=== PATIENT | male | born 1965 | race Caucasian/White ===

== ENCOUNTER 2016-12-29 13:38 | Emergency (ER) | payer OTHER ==
[~2016-12-29 13:38] MED LIST: AMOXICILLIN875 MG PO; AUG500 PO; BACTROBAN2% TP; CLEOCIN HCL300 MG PO; COLACE100 MG PO; HIB480 TP; IBUPROFEN600 MG PO; LAC PO; NOR10T PO
[2016-12-29 15:52] VITALS: BP 128/67
== END 2016-12-29 15:52 | disposition home or self-care (01) ==
LOC: ED 13:38
DX: S01.01XA Laceration without foreign body of scalp, initial encounter (principal); L08.9 Local infection of the skin and subcutaneous tissue, unspecified; X58.XXXA Exposure to other specified factors, initial encounter; Y93.89 Activity, other specified; Y99.8 Other external cause status; Y92.89 Other specified places as the place of occurrence of the external cause

== ENCOUNTER 2017-01-11 14:22 | Emergency (ER) | payer OTHER ==
[2017-01-11 14:54] VITALS: BP 110/77
== END 2017-01-11 16:33 | disposition home or self-care (01) ==
LOC: ED 14:22
DX: S01.01XD Laceration without foreign body of scalp, subsequent encounter (principal); X58.XXXD Exposure to other specified factors, subsequent encounter; Y99.8 Other external cause status; Y92.89 Other specified places as the place of occurrence of the external cause

== ENCOUNTER 2017-02-06 14:28 | Emergency (ER) | payer OTHER ==
[~2017-02-06] VITALS: Ht 172.7 cm; Wt 93.4 kg
[2017-02-06 15:02] LABS: PLATELET COUNT 211 x10^3mcL (130-400)
[2017-02-06 15:03] LABS: RED CELL DISTRIBUTION WIDTH 14.7 % (11.5-14.5)
[2017-02-06 15:14] LABS: CALCIUM 8.3 mg/dL (8.5-10.1); CARBON DIOXIDE 27.3 mmol/L (21-32); CHLORIDE SERUM 100 mmol/L (98-107); CREATININE SERUM 0.9 mg/dL (0.7-1.3); GFR1 > 60 mL/min; GLUCOSE SERUM 123 mg/dL (74-106); POTASSIUM SERUM 3.7 mmol/L (3.5-5.1); SODIUM SERUM 133 mmol/L (136-145)
[2017-02-06 15:16] LABS: ALBUMIN 3.5 g/dL (3.4-5.0); ALKALINE PHOSPHATASE 77 U/L (46-116); ALT/SGPT 24 U/L (16-63); AST/SGOT 10 U/L (15-37); BAND NEUTROPHIL 7 % (0-10); BILIRUBIN TOTAL 0.7 mg/dL (0.20-1.00); MONOCYTE 5 % (0-7); SEGMENTED NEUTROPHILS 80 % (37-75); TOTAL PROTEIN, SERUM 7.1 g/dL (6.4-8.2); rbc morphology (normal/abnorm) NORMAL (NORMAL)
[2017-02-06 19:05] VITALS: BP 106/72
== END 2017-02-06 19:03 | disposition home or self-care (01) ==
LOC: ED 14:28
DX: G43.909 Migraine, unspecified, not intractable, without status migrainosus (principal); R07.9 Chest pain, unspecified; H53.149 Visual discomfort, unspecified; R10.13 Epigastric pain; F17.210 Nicotine dependence, cigarettes, uncomplicated; F12.10 Cannabis abuse, uncomplicated
CPT/HCPCS: 83880; J1200; J2765; J7030

== ENCOUNTER 2017-02-07 13:05 | Emergency (ER) | payer OTHER ==
[2017-02-07 19:22] LABS: BASOPHIL % 0.4 % (0-2); PLATELET COUNT 228 x10^3mcL (130-400); RED CELL DISTRIBUTION WIDTH 14.4 % (11.5-14.5)
[2017-02-07 19:25] LABS: CALCIUM 8.5 mg/dL (8.5-10.1); CARBON DIOXIDE 31.6 mmol/L (21-32); CHLORIDE SERUM 103 mmol/L (98-107); CREATININE SERUM 1.1 mg/dL (0.7-1.3); GFR1 > 60 mL/min; GLUCOSE SERUM 93 mg/dL (74-106); POTASSIUM SERUM 4.2 mmol/L (3.5-5.1); SODIUM SERUM 140 mmol/L (136-145)
[2017-02-07 19:30] LABS: ALKALINE PHOSPHATASE 77 U/L (46-116); ALT/SGPT 23 U/L (16-63); AMYLASE 33 U/L (25-115); AST/SGOT 12 U/L (15-37); BILIRUBIN TOTAL 0.3 mg/dL (0.20-1.00); LIPASE 174 IU/L (73-393); TOTAL PROTEIN, SERUM 7.5 g/dL (6.4-8.2)
[2017-02-07 19:41] LABS: ALBUMIN 3.3 g/dL (3.4-5.0)
[2017-02-07 21:01] VITALS: BP 116/71
== END 2017-02-07 13:17 | disposition home or self-care (01) ==
LOC: ED 13:05
PROVIDERS: Emergency Medicine
DX: R10.9 Unspecified abdominal pain (principal); R51 Headache; M79.1 Myalgia; R07.89 Other chest pain; H57.8 Other specified disorders of eye and adnexa
CPT/HCPCS: 83880; J1885; J3490; J7030

== ENCOUNTER 2018-03-16 09:22 | Emergency (ER) | payer OTHER ==
[~2018-03-16] VITALS: Ht 167.6 cm; Wt 96.6 kg
[2018-03-16 09:35] VITALS: Ht 167.6 cm; Wt 96.6 kg
[2018-03-16 12:28] VITALS: BP 139/85
== END 2018-03-16 12:28 | disposition home or self-care (01) ==
LOC: ED 09:22
DX: J02.9 Acute pharyngitis, unspecified (principal); F41.9 Anxiety disorder, unspecified; G43.909 Migraine, unspecified, not intractable, without status migrainosus
CPT/HCPCS: J1100; J1885; Q0163

== ENCOUNTER 2020-04-06 20:31 | Inpatient (IN) | payer MEDICAID, SELFPAY ==
[~2020-04-06] VITALS: Ht 170.2 cm; Wt 99.8 kg
[2020-04-06 20:33] VITALS: Ht 170.2 cm; Wt 99.8 kg
--- NOTE | 2020-04-06 21:08 | NUR ---
RECEIVED PT IN BED 12 . PT IS RO COVID AND IA C/O N/V, AND HEADACHE SINCE SATURDAY AND FACIAL NUMBNESS TODAY. DR. FLORES ASSESS ED PT AND PLACED ORDERS.
[2020-04-06 21:45] LABS: BASOPHIL % 0.8 % (0-2); PLATELET COUNT 222 x10^3mcL (130-400); RED CELL DISTRIBUTION WIDTH 14.3 % (11.5-14.5)
[2020-04-06 21:56] LABS: CALCIUM 9.4 mg/dL (8.5-10.1); CARBON DIOXIDE 24.8 mmol/L (21-32); CHLORIDE SERUM 97 mmol/L (98-107); CREATININE SERUM 1.2 mg/dL (0.7-1.3); GFR1 > 60 mL/min; GLUCOSE SERUM 124 mg/dL (74-106); POTASSIUM SERUM 3.5 mmol/L (3.5-5.1); SODIUM SERUM 134 mmol/L (136-145)
[2020-04-06 22:00] LABS: ALKALINE PHOSPHATASE 82 U/L (46-116); ALT/SGPT 35 U/L (16-63); AST/SGOT 16 U/L (15-37); BILIRUBIN TOTAL 0.96 mg/dL (0.20-1.00); C REACTIVE PROTEIN 5.6 mg/dL (<=0.9); LACTIC DEHYDROGENASE (LDH) 178 U/L (100-190); LIPASE 184 IU/L (73-393); TOTAL PROTEIN, SERUM 7.7 g/dL (6.4-8.2)
[2020-04-06 23:22] LABS: microscopic required? YES; urine erythrocyte TRACE (NEGATIVE)
[2020-04-06] MEDS ORDERED: BUT/ASP/CAFF W/1 CAP (23:57)
--- NOTE | 2020-04-07 01:00 | NUR ---
RECIEVED PATIENT VIA GURNEY BY 2 ER NURSES. A/O X4. C/O HOUSTON AND NAUSEA. ON TELEMONITOR 6. NSR. C/O INTERMITTENT CHRONIC CHEST PAIN. PULSES PALPABLE AND NO EDEMA NOTED. ON 3 L NC. LUNG SOUNDS CTA. SATURATION 95%. NORMOACTIVE BOWEL SOUNDS X4. LAST BM 04/06/20. C/O DIARRHEA. C/O URINARY FREQUENCY AND STATES IT LOOKS, "BROWNISH." AMBULATORY. C/O HEADACHE AND BUTTOCKS PAIN 03/14. WILL F/U WITH PAIN MEDS. GENE IV CDI. DENIES PAIN AT SITE. BED IN LOWEST AND LOCKED POSITION. CALL LIGHT WITHIN REACH. WILL CONT TO MONITOR.
--- NOTE | 2020-04-07 02:10 | NUR ---
GAVE NORCO PRESCRIBED PRN FOR PAIN. PATIENT C/O HOUSTON AND BUTTOCKS PAIN 03/14. GAVE ZOFRAN PRESCRIBED PRN FOR N/V. PATIENT C/O NAUSEA.
[2020-04-07 03:21] VITALS: BP 108/57
[2020-04-07 05:51] VITALS: BP 114/71
[2020-04-07 05:57] LABS: AMPHETAMINE QUAL UR NONE DETECTED (See below)
--- NOTE | 2020-04-07 06:47 | NUR ---
PATIENT STATES NORCO HAS HELPED AND PAIN HAS DECREASED TO A 1/10 FOR HEADACHE AND BUTTOCKS PAIN.
--- NOTE | 2020-04-07 07:00 | NUR ---
RECIEVED PT RESTING IN BED A/O X4 WITH NO HOUSTON OR DIZZINESS. TELE #6 CONNECTED TO PT AND HE DENIES ANY CP OR PRESSURE AT THIS TIME. PT FOUND ON 3 LPM/NC, NO SOB REPORTED. PT AMBULATORY. NS 100ML/HR RUNNING IN GENE, CDI AND PATENT. SAFETY PRECAUTIONS IN PLACE, CALL LIGHT WITHIN REACH, WILL MONITOR.
--- NOTE | 2020-04-07 07:00 | NUR ---
ENDORSED CARE TO AM NURSE.
[2020-04-07 08:12] LABS: PLATELET COUNT 216 x10^3mcL (130-400)
--- NOTE | 2020-04-07 08:22 | NUR ---
NORCO GIVEN PER EMAR FOR C/O 11/12 CP, WILL MONITOR. AWARE.
[2020-04-07 08:26] LABS: BASOPHIL % 0 % (0-2); RED CELL DISTRIBUTION WIDTH 14.6 % (11.5-14.5)
[2020-04-07 08:36] VITALS: BP 103/66
[2020-04-07 10:49] LABS: CARBON DIOXIDE 26.4 mmol/L (21-32); CHLORIDE SERUM 98 mmol/L (98-107); CREATININE SERUM 1.1 mg/dL (0.7-1.3); GFR1 > 60 mL/min; GLUCOSE SERUM 166 mg/dL (74-106); POTASSIUM SERUM 5.1 mmol/L (3.5-5.1); SODIUM SERUM 136 mmol/L (136-145)
[2020-04-07 11:33] LABS: C REACTIVE PROTEIN 16.2 mg/dL (<=0.9)
[2020-04-07 13:45] VITALS: BP 111/75
--- NOTE | 2020-04-07 13:46 | NUR ---
Discount pharmacy card and list to low cost medical clinics given Honey Abraham and she will hand it to patient.
--- NOTE | 2020-04-07 15:18 | NUR ---
NORCO GIVEN PER EMAR FOR C/O 01/12 HOUSTON, WILL MONITOR.
--- NOTE | 2020-04-07 16:55 | NUR ---
DR BERUMEN AT [facility] DISCUSSING TREATMENT AND POC, PT VERBALIZES UNDERSTANDING. PT STATES THE NORCO HELPED DECREASE HOUSTON/PAIN. WILL MONITOR.
--- NOTE | 2020-04-07 17:17 | NUR ---
PT REPORTS HOUSTON AND 11/12 CP, DR BERUMEN MADE AWARE, WILL CARRY OUT ANY NEW ORDERS.
[2020-04-07 17:21] VITALS: BP 114/71
--- NOTE | 2020-04-07 18:17 | NUR ---
PT RESTING COMFORTABLY IN BED A/O X4 WITH NO HOUSTON OR DIZZINESS. TELE #6 CONNECTED TO PT AND HE DENIES ANY CP OR PRESSURE AT THIS TIME. PT ON 3L/NC, NO SOB REPORTED. PT AMBULATORY. NS 100ML/HR RUNNING IN GENE, CDI AND PATENT. SAFETY PRECAUTIONS IN PLACE, CALL LIGHT WITHIN REACH, WILL ENDORSE CARE OVER TO NIGHT NURSE.
--- NOTE | 2020-04-07 19:39 | NUR ---
RECEIVED PATIENT IN BED RESTING IN A POSITION OF COMFORT WATCHING TELEVISION. NO SIGN OF ACUTE RESPIRATORY DISTRESS NOTED. BREATHING EASY AND NONLABOR ON O2 AT 3L VIA NC SATTING AT 95%. TELE#6 NSR ON MONITOR, DENIES CHESTPAIN AT THIS TIME, PATIENT MEDICATED EARLIER BY AM SHIFT RN. IV TO GENE INTACT AND INFUSING WELL. KEPT ON ISOLATION PRECAUTION R/O COVID. WILL CONTINUE TO MONITOR. CALL LIGHT WITHIN REACH.
--- NOTE | 2020-04-07 21:02 | NUR ---
C/O HEADACHE 02/11 REFUSED TYLENOL, NORCO 1 TAB PO GIVEN PRESCRIBED. WILL CONTINUE TO MONITOR.
[2020-04-07 21:18] VITALS: BP 102/64
--- NOTE | 2020-04-08 02:37 | NUR ---
APPEAR TO BE SLEEPING WITH EYS CLOSED THIS TIME . BREATHING EASY AND NONLAVBOR ON O2 AT 2L VIA NC. WILL CONTINUE TO MONITOR.
--- NOTE | 2020-04-08 05:04 | NUR ---
CHECKED AT INTERVALS FOR NEEDS AND COMFORT. C/O HEADACHE AND CHEST DISCOMFORT X2 THROUGHOUT THE SHIFT AND MEDICATED PRESCRIBED.
[2020-04-08 05:25] VITALS: BP 107/64
[2020-04-08 06:57] LABS: BASOPHIL % 0.3 % (0-2); PLATELET COUNT 214 x10^3mcL (130-400)
[2020-04-08 07:13] LABS: CALCIUM 8.8 mg/dL (8.5-10.1); CARBON DIOXIDE 30.2 mmol/L (21-32); CHLORIDE SERUM 101 mmol/L (98-107); CREATININE SERUM 0.9 mg/dL (0.7-1.3); GFR1 > 60 mL/min; GLUCOSE SERUM 133 mg/dL (74-106); PHOSPHOROUS 3.4 mg/dL (2.5-4.9); POTASSIUM SERUM 4.9 mmol/L (3.5-5.1); SODIUM SERUM 138 mmol/L (136-145)
--- NOTE | 2020-04-08 07:13 | NUR ---
RECEIVED PT REPORT FROM CRUDE OIL TREATER NURSE. WILL ASSUME PT CARE.
[2020-04-08 07:21] LABS: CHOLESTEROL/HDL RATIO 4.5
[2020-04-08 07:25] LABS: FREE T4 1.29 ng/dL (0.76-1.46); FREE THYROXINE INDEX 3.1 ug/dL (1.4-4.5); T4(THYROXINE) 8.6 ug/dL (4.7-13.3)
[2020-04-08 07:39] LABS: T3 TOTAL 0.63 ng/mL
[2020-04-08 08:01] LABS: MAGNESIUM 2.2 mg/dL (1.8-2.4)
[2020-04-08 08:20] VITALS: BP 112/72
--- NOTE | 2020-04-08 08:48 | NUR ---
PT SEEN AT BEDSIDE. PT RESTING IN BED, AOX4, RESP E/U ON RA, SPO2: 99%. DENIES SOB AT THIS TIME. C/O ACHING LOWER CHEST PAIN, NONRADIATING, BUT TOLERABLE AT THIS TIME. COMFORT MEASURES IMPLEMENTED. ON TELE 5 SHOWING SINUS LISANDRO, HR: 56, S1 AND S2 WNL. IV TO RFA W/ NO SIGN OF INFILTRATION, IVF INFUSING WELL. BED IN LOWEST POSITION AND CALL LIGHT WITHIN REACH. WILL CONTINUE TO MONITOR.
[2020-04-08] MEDS ORDERED: AZITHROMYCIN250 M1 PO (11:08)
--- NOTE | 2020-04-08 11:40 | NUR ---
PT RESTING IN BED, AOX4, RESP E/U ON RA. C/O EPIGASTRIC PAIN AT THIS TIME RATED 7/10, DENIES N/V. ADMINISTERED NORCO ORDERED PER EMAR. COMFORT MEASURES IMPLEMENTED. BED IN LOWEST POSITION AND CALL LIGHT WITHIN REACH. WILL CONTINUE TO MONITOR.
[2020-04-08 11:49] VITALS: BP 114/66
--- NOTE | 2020-04-08 13:15 | NUR ---
PT CONTINUED TO C/O ABD PAIN S/P NORCO. ABD FIRM/TENDER TO PALPATION. STATED HE HAD DIFFICULTY PASSING BM THE OTHER DAY. DR. HOUSTON MADE AWARE. ADMINISTERED MAG CITRATE ORDERED. WILL CONTINUE TO MONITOR.
[2020-04-08 15:56] VITALS: BP 109/60
--- NOTE | 2020-04-08 17:25 | NUR ---
PT C/O OF EPIGASTRIC AND LLQ/RLQ ABD PAIN RATED 8/10. ADMINISTERED NORCO ORDERED PER EMAR. DENIES BM S/P MAG CITRATE. DR. HOUSTON INFORMED. DISCHARGE TO BE HELD.
--- NOTE | 2020-04-08 19:29 | NUR ---
RECEIVED PT FROM DAY SHIFT NURSE. PT A/OX4. ON TELE#6 READING NSR AT 66. PT DENIES CHEST PAIN OR PRESSURE. RR EVEN AND UNLABORED ON RA, SATURATION AT 97%. PT DENIES SOB OR DIFFICULTY BREATHING. PT C/O ABD PAIN AND CONSTIPATION. PT REPORTED BOWEL MOVEMENT ON 04/07, HARD FORMED AND PEBBLE LIKE. PT VOIDS FREELY. AMBULATORY. IV TO RFA, INFUSING NS AT 100 ML/HR. COVID RESULTS (-), ISOLATION PRECAUTIONS IN PLACE FOR DROPLET/CONTACT. CALL LIGHT WITHIN REACH. BED IN LOWEST POSITION. WILL CONTINUE TO MONITOR.
[2020-04-08 20:51] VITALS: BP 100/60
--- NOTE | 2020-04-09 01:24 | NUR ---
PT AWAKE IN BED AT THIS TIME. PT REPROTS INCREASED ABD PAIN 05/14. DOCTOR NOTIFIED. ADMINISTERED PAIN MEDICATION PER OCT. PT THEN REPORTED NAUSEA, VOMITING, AND CHEST PAIN 05/14. INFORMED DOCTOR CORDELL. DOCTOR ORDERED STAT EKG. CALL LIGHT WITHIN REACH. WILL CONTINUE TO MONITOR.
[2020-04-09 06:16] VITALS: BP 110/69
--- NOTE | 2020-04-09 06:29 | NUR ---
PT ASLEEP IN BED AT THIS TIME. NO SIGNS OF ACUTE DISTRESS NOTED. RR EVEN AND UNLABORED ON RA, SATURATION 98%. NO C/O PAIN OR DISCOMFORT AT THIS TIME. ALL NEEDS/CONCERNS ADDRESSED THROUGHOUT THE SHIFT. CALL LIGHT WITHIN REACH. WILL ENDORSE CARE TO ONCOMING SHIFT NURSE.
--- NOTE | 2020-04-09 07:10 | NUR ---
RECEIVED PT REPORT FROM GAS WORKER NURSE. WILL ASSUME PT CARE.
[2020-04-09 07:14] LABS: BASOPHIL % 0.3 % (0-2); PLATELET COUNT 237 x10^3mcL (130-400); RED CELL DISTRIBUTION WIDTH 14.5 % (11.5-14.5)
[2020-04-09 07:30] LABS: CALCIUM 8.7 mg/dL (8.5-10.1); CARBON DIOXIDE 30.8 mmol/L (21-32); CHLORIDE SERUM 103 mmol/L (98-107); CREATININE SERUM 0.9 mg/dL (0.7-1.3); GFR1 > 60 mL/min; GLUCOSE SERUM 106 mg/dL (74-106); MAGNESIUM 2.4 mg/dL (1.8-2.4); PHOSPHOROUS 3.3 mg/dL (2.5-4.9); POTASSIUM SERUM 4.5 mmol/L (3.5-5.1); SODIUM SERUM 140 mmol/L (136-145)
--- NOTE | 2020-04-09 08:20 | NUR ---
ECHOCARDIOGRAM PENDING-R/O COVID PENDING
--- NOTE | 2020-04-09 08:22 | NUR ---
PT SEEN AT BEDSIDE. RESTING AT THIS TIME, AOX4, RESP E/U ON RA. C/O OF ABD PAIN RATED 10/10 AND N/V. WENT TO RESTROOM IN ATTEMPTS TO VOMIT, DRY HEAVING OBSERVED, NO EMESIS NOTED. WILL F/U W/ PAIN AND NAUSEA MEDS PER EMAR. COMFORT MEASURES IMPLEMENTED. ON TELE 6 SHOWING, SINUS LISANDRO, HR: 53, DENIES CHEST PAIN. IV TO RFA W/ NO SIGNS OF INFILTRATION, IVF INFUSING WELL. BED IN LOWEST POSITION AND CALL LIGHT WITHIN REACH. WILL CONTINUE TO MONITOR.
[2020-04-09 08:40] VITALS: BP 123/75
--- NOTE | 2020-04-09 09:23 | NUR ---
ADMINISTERED NORCO AND ZOFRAN IVP ORDERED PER EMAR. WILL CONTINUE TO MONITOR.
[2020-04-09 11:59] VITALS: BP 123/75
[2020-04-09 12:09] VITALS: BP 121/77
--- NOTE | 2020-04-09 13:09 | NUR ---
ECHOCARDIOGRAM NOT DONE-DISCHARGED
--- NOTE | 2020-04-09 13:10 | NUR ---
PT DISCHARGED. REVIEWED D/C PACKET, NEW RX MEDS AND F/U INSTRUCTIONS W/ PT. PT VERBALIZED UNDERSTANDING OF INSTRUCTIONS. PT AOX4, RESP E/U ON RA, VS STABLE, STILL REPORTS ABD PAIN BUT TOLERABLE AT THIS TIME, DENIES N/V. IV TO RFA REMOVED, CATH INTACT, GAUZE APPLIED TO SITE. TELE 6 COLLECTED AND RETURNED TO SCHOOL LUNCH MONITOR STATION. PT AMBULATORY TO [facility], ESCORTED BY VIMAL COTTON W/ NO ACUTE INCIDENCE.
== END 2020-04-09 13:14 | disposition home or self-care (01) | DRG 720 ==
LOC: ED 20:31 → DU 20:59
PROVIDERS: Emergency Medicine; ADMIT Internal Medicine; ATTEND Internal Medicine
DX: A41.9 Sepsis, unspecified organism (principal); J96.01 Acute respiratory failure with hypoxia; M94.0 Chondrocostal junction syndrome [Tietze]; J18.9 Pneumonia, unspecified organism; E87.1 Hypo-osmolality and hyponatremia; Z20.828 Contact with and (suspected) exposure to other viral communicable diseases; G43.909 Migraine, unspecified, not intractable, without status migrainosus; F41.9 Anxiety disorder, unspecified; N39.0 Urinary tract infection, site not specified
CPT/HCPCS: 83880; 84439; 85378; 87804; G0378; J0456; J0696; J1100; J1644; J2270; J2405; J3010; J7030; Q0092; U0003-CS